=== PATIENT | male | born 1975 | race Caucasian/White ===

== ENCOUNTER 2016-07-18 17:28 | Emergency (ER) | payer BC ==
[2016-07-18] MEDS ORDERED: oxyCODONE/Acetamin 5/325 MG* TAB PO ONE ×2 (18:32→21:00)
--- NOTE | 2016-07-18 19:04 | RAD ---
INDICATION: Left testicular pain and swelling COMPARISON: None TECHNIQUE: Duplex interrogation of the scrotum was performed. FINDINGS: Testicles: The testicles are Normal in size and echogenicity. There is no evidence of testicular mass. There is symmetric flow on Doppler interrogation. There is no evidence of torsion.. The right testis measures 5.7 x 2.8 x 3.2 cm and the left 5.0 x 2.6 x 2.9 cm. There is symmetric flow on Doppler interrogation. Epididymides: There is no evidence of an epididymal mass. The epididymides are normal in size. The left epididymis is hyperemic. The right epididymal head measures 0.6 x 1.1 cm and the left 1.0 x 1.4 cm. Hydroceles: None. Varicoceles: None. Other: None. IMPRESSION: HYPEREMIA LEFT EPIDIDYMIS CONSISTENT WITH EPIDIDYMITIS. NO FINDINGS OF TORSION.
[2016-07-18 19:10] VITALS: BP 133/69
[2016-07-18] MEDS ORDERED: Ciprofloxacin TAB* 500 MG PO ONE (20:23)
--- NOTE | 2016-07-18 22:35 | ED ---
Aman Hart Aidan, scribed for Abilio Elliott MD on 07/18/16 at 1846 . GI/ HPI - HPI Summary HPI Summary: 41 y/o male presents to the ED with a complaint of acute, moderate, episodes of left testicular swelling with [id number] (reported 9/10) associated pain. His pain and inflammation began 3 days ago and persisted intermittently for a day before resolving for another day. He felt the pain again yesterday and this morning. Today, the pain was much worse and began radiating to the left side of his abdomen. Lying down still slightly alleviates his pain. - History of Current Complaint Chief Complaint: EDUrogenitalProblems Time Seen by Provider: 07/18/16 18:17 Stated Complaint: SWOLLEN LT TESTICLE Hx Obtained From: Patient Onset/Duration: Started Days Ago, Still Present Timing: Intermittent, Lasting Hours Severity: Moderate Current Severity: Moderate Pain Intensity: 9 Location of Pain: Radiates to: - left side of abdomen Additional Locations for Males: Testicles Pain Characteristics: Sharp Pain Radiates to: LLQ Associated Signs and Symptoms: Positive: Other: - testicular inflammation Aggravating Factor(s): Nothing - unknown Alleviating Factor(s): Rest - lying down still - Allergy/Home Medications Allergies/Adverse Reactions: Allergies Allergy/AdvReac Type Severity Reaction Status Date / Time No Known Allergies Allergy Verified 07/18/16 18:15 PMH/Surg Hx/FS Hx/Imm Hx Infectious Disease History: Denies: Traveled Outside the [place] in Last 30 Days - Family History Known Family History: Positive: Hypertension - Social History Occupation: Employed Full-time Lives: With Family Alcohol Use: Rare Substance Use Type: Reports: None Smoking Status (MU): Never Smoked Tobacco Review of Systems Constitutional: Negative Eyes: Negative ENT: Negative Cardiovascular: Negative Respiratory: Negative Gastrointestinal: Negative Genitourinary: Other - testicular pain that radiates to the left side of the abdomen, testicular inflammation Negative: burning, dysuria, discharge, frequency, flank pain, hematuria, incontinence, pain, urgency Musculoskeletal: Negative Skin: Negative Neurological: Negative Psychological: Normal All Other Systems Reviewed And Are Negative: Yes Physical Exam Triage Information Reviewed: Yes Vital Signs On Initial Exam: Initial Vitals Temp Pulse Resp BP Pulse Ox 98.6 F 62 16 159/91 98 07/18/16 17:55 07/18/16 17:55 07/18/16 17:55 07/18/16 17:55 07/18/16 17:55 Vital Signs Reviewed: Yes Appearance: Positive: Well-Appearing, No Pain Distress Skin: Positive: Warm, Skin Color Reflects Adequate Perfusion, Dry Head/Face: Positive: Normal Head/Face Inspection Eyes: Positive: Normal ENT: Positive: Normal ENT inspection Neck: Positive: Supple, Nontender Respiratory/Lung Sounds: Positive: Clear to Auscultation, Breath Sounds Present Cardiovascular: Positive: RRR Abdomen Description: Positive: Nontender, Soft Bowel Sounds: Positive: Present Male Genital Exam: Positive: epididymal tenderness - swollen left testicle, tender through testicle and over the epididymis, testicular tenderness (L) - swollen left testicle, tender through testicle and over the epididymis Musculoskeletal: Positive: Normal Neurological: Positive: Normal Psychiatric: Positive: Affect/Mood Appropriate Diagnostics - Vital Signs Vital Signs Temp Pulse Resp BP Pulse Ox 07/18/16 17:55 98.6 F 62 16 159/91 98 - Laboratory Lab Statement: Any lab studies that have been ordered have been reviewed, and results considered in the medical decision making process. - Ultrasound No standard instances Ultrasound Interpretation: Positive (See Comments) - IMPRESSION: HYPEREMIA LEFT EPIDIDYMIS CONSISTENT WITH EPIDIDYMITIS. NO FINDINGS OF TORSION. Ultrasound Interpretation Completed By: Radiologist GIGU Course/Dx - Course Course Of Treatment: This is a patient with a swollen left testicle and tenderness through his left testicle and over the epididymis. Testicular US indicated hyuperemia left epididymis, consistent with epididymitis. There were no findings of torsion. - Diagnoses Provider Diagnoses: Epididymitis Discharge - Discharge Plan Condition: Stable Disposition: HOME Discharge Disposition Comment: Please follow up with urology within 2 days. Prescriptions: Ciprofloxacin TAB* [Cipro Tab*] 500 mg PO BID #20 tab oxyCODONE/Acetamin 5/325 MG* [Percocet 5/325 TAB*] 1 tab PO Q6H PRN #20 tab MDD 4 PRN Reason: Pain Patient Education Materials: Epididymitis (ED) Forms: *Work Release Referrals: No Primary Care Phys,NOPCP [Primary Care Provider] - Dimitry Lopez MD [Medical Doctor] - The documentation as recorded by the Aman qureshi Aidan accurately reflects the service I personally performed and the decisions made by Earl pope Richard L, MD.
== END 2016-07-18 20:48 | disposition home or self-care (01) ==
LOC: ED 17:28
DX: N45.1 Epididymitis (principal)
CPT/HCPCS: 76870; 99282; A9270-GY

== ENCOUNTER 2019-01-04 10:20 | Day surgery (SDC) | payer BC ==
[~2019-01-04 10:20] MED LIST: Buffered Lidocaine 1% SYRIN* 1 ML/SYRINGE INTRADERM ONE; Lactated Ringers 1000 ML Bag* 1,000 ML IV SCH; Sodium Citrate/Citric Acid* 15 ML UDC PO ONE
[2019-01-04] MEDS ORDERED: ceFAZolin 2 GM PREMIX in ORs 2 GM/50 ML BAG ONE (10:30)
[2019-01-04] MEDS ORDERED: Sodium Citrate/Citric Acid* 15 ML UDC ONE (10:38)
[2019-01-04] MEDS ORDERED: Bupivacaine 0.25% SDV* 30 ML ONE (11:24)
[2019-01-04] MEDS ORDERED: fentaNYL* 50 MCG/ML 2 ML VIAL (100 MCG VIAL) ONE (11:29)
[2019-01-04] MEDS ORDERED: Midazolam* 1 MG/ML 2 ML VIAL (2 MG) ONE (11:29)
[2019-01-04] MEDS ORDERED: Propofol* 10 MG/ML 20 ML BTL ONE (11:30)
[2019-01-04] MEDS ORDERED: Ketorolac INJ* 30 MG/ML 1 ML VIAL ONE (12:01)
[2019-01-04] MEDS ORDERED: Dexamethasone IV* 4 MG/ML 1 ML (4 MG) ONE (12:01)
[2019-01-04] MEDS ORDERED: Ondansetron INJ* 2 MG/ML VIAL IV PRN (12:10)
[2019-01-04] MEDS ORDERED: Naloxone* 0.4 MG/ML 1 ML VIAL IV PRN (12:10)
[2019-01-04] MEDS ORDERED: fentaNYL* 50 MCG/ML 2 ML VIAL (100 MCG VIAL) IV PRN (12:10)
[2019-01-04] MEDS ORDERED: Acetaminophen IV 1GM/100ML * 1,000 MG/100 ML VIAL IVPB ONE (12:10)
[2019-01-04 14:04] VITALS: BP 132/89
--- NOTE | 2019-01-04 19:26 | OP ---
DATE OF OPERATION: 01/04/19 - [facility] DATE OF : 77 SURGEON: Tima Araiza MD LOGGING SUPERINTENDENT: AKASH Ford. An respiratory assistant was needed for the procedure to aid in positioning of the arm and retraction. ANESTHESIOLOGIST: Dr. Herrera. ANESTHESIA: General. PRE-OP DIAGNOSIS: Left elbow chronic lateral epicondylitis. POST-OP DIAGNOSIS: Left elbow chronic lateral epicondylitis. OPERATIVE PROCEDURE: Left elbow lateral epicondylitis debridement with tendon repair. INDICATIONS: Mr. Douglass has the chronic epicondylitis. We had talked about treatment options and he wanted to proceed. He understands there is a risk that he may still have pain despite doing surgery. ESTIMATED BLOOD LOSS: 2 mL. COMPLICATIONS: None. FINDINGS: See above and below. DESCRIPTION OF PROCEDURE: Mr. Douglass was seen in the preoperative holding area. The correct site, side, and procedures were identified. We came back to the operating room where the arm was prepped and draped in the usual fashion. A time- out was performed. The arm was exsanguinated with the Esmarch and the tourniquet inflated to 225 mmHg. I made an incision centered over the lateral epicondyle. Dissection was carried down and full thickness flaps were raised off of the fascia. I utilized the interval between ECRL and the EDC to gain access to the ECRB tendon. This was debrided right off the bone on the lateral epicondyle, this was taken down and some of the radiocapitellar joint capsule was excised as well. Care was taken not to go more inferior and to protect the ulnar collateral ligament. At this point, the debridement was looking very good. I used the curette and the rongeur to freshen up the bone and tried to get a little bit of tendon healing. I nipped off just at end of the lateral epicondyle as well. The wound was irrigated out. The tendon was repaired with 0 Vicryl suture. Once I had repaired the tendon, the subcutaneous tissue was reapproximated with 3-0 Vicryl and the skin was closed with 4-0 Monocryl and Steri-Strips. 0.25% Marcaine was infiltrated all about the area. A long arm splint with the lateral buttress was applied and he was taken to the recovery room in stable condition. [id number]/[facility] #: [id number] [facility]
== END 2019-01-04 14:23 | disposition home or self-care (01) ==
LOC: OREAST 10:20
PROVIDERS: ATTEND Orthopaedic Surgery Hand Surgery
DX: M77.12 Lateral epicondylitis, left elbow (principal); F17.200 Nicotine dependence, unspecified, uncomplicated
CPT/HCPCS: 88304; A9270-GY; J0690; J1100; J1885; J2250; J2704; J3010; J3490